=== PATIENT | male | born 1955 | race Caucasian/White ===

== ENCOUNTER 2023-10-09 07:39 | Emergency (ER) | payer MEDICARE, SELFPAY ==
--- NOTE | ~2023-10-09 | XR_ITS ---
Left foot Technique: AP, oblique, and lateral views were obtained. Clinical History: Heel pain Findings: No acute fracture or dislocation is seen. Osseous alignment is anatomic. Joint spaces are p reserved without erosive or degenerative change. Tiny plantar heel spur present. Soft tissues are unr emarkable. Impression: No acute abnormality. Tiny plantar calcaneal spur. Reviewed, dictated and finalized at location . Impression: No acute abnormality. Tiny plantar calcaneal spur.
[2023-10-09 07:44] VITALS: BP 150/90; PULSE 67; RESP 16; TEMP 36.6; O2SAT 98
--- NOTE | 2023-10-09 08:03 | ED.EXTPRO ---
HPI - Extremity Problem General Chief complaint: Extremity Problem,Nontraumatic Stated complaint: bone spur Time Seen by Provider: 10/09/23 07:47 History of Present Illness HPI Narrative: Pt complains of left heal pain for several weeks which got worse yesterday when walking around a field for 3 hrs. Pt had heal spur 25 yrs ago and got cortisone injection and has not had any problems since. Pt has appointment with PCP in 3 weeks but could not wait due to discomfort. Pt denies injury. Related Data Home Medications Medication Instructions Recorded Confirmed desmopressin 0.2 mg tablet 0.4 mg PO HS 01/27/19 02/02/19 lisinopril 10 mg tablet 10 mg PO DAILY 01/27/19 02/02/19 tamsulosin 0.4 mg capsule 0.4 mg PO HS 01/27/19 02/02/19 testosterone 1 % (50 mg/5 gram) 1 packet topical DAILY 01/27/19 02/02/19 transdermal gel packet Allergies Allergy/AdvReac Type Severity Reaction Status Date / Time No Known Allergies Allergy Unverified 02/02/19 11:46 Review of Systems Review of Systems: All systems reviewed & are unremarkable except as noted in HPI and below Exam Const: General: healthy appearing and no acute distress Nutritional Appearance: well nourished Orientation/consciousness: patient oriented x3 Limitations: no limitations Eyes: EOM: EOMs intact bilaterally Neck: Neck: normal visual inspection Resp: Effort & Inspection: normal respiratory effort Skin: General skin exam: normal color Rashes: no rashes Wounds: no wounds Neuro: General: patient oriented x3, moves all extremities, no meningeal signs and no focal motor deficits Extrem: General: normal to inspection and no clubbing, cyanosis or edema Other: no tenderness to palpation of left heal Psych: Mental Status: mental status grossly normal Affect: normal affect Attitude: cooperative Course Vital Signs Vital signs: Vital Signs Temperature 97.9 F 10/09/23 07:44 Pulse Rate 67 10/09/23 07:44 Respiratory Rate 16 10/09/23 07:44 Blood Pressure 150/90 H 10/09/23 07:44 Pulse Oximetry 98 10/09/23 07:44 Oxygen Delivery Room Air 10/09/23 07:44 Temperature 97.9 F 10/09/23 07:44 Pulse Rate 67 10/09/23 07:44 Respiratory Rate 16 10/09/23 07:44 Blood Pressure 150/90 H 10/09/23 07:44 Pulse Oximetry 98 10/09/23 07:44 Oxygen Delivery Room Air 10/09/23 07:44 MDM - Extremity (Nontraumatic) MDM Narrative Medical decision making narrative: Pt presents with left heal pain similar to calcaneal spur he had years ago. Pt is requesting cortisone shot to heal. Informed patient patrizia I do not do this procedure and may not be indicated right now anyway. Will try a short cours of oral prednisone and give podiatry contacts for follow up. Discharge Plan Discharge Clinical Impression: Heel spur Patient Disposition: Home, Self-Care Condition: Stable Instructions: Antibiotic Form, Heel Spur (ED) Prescriptions: New prednisone 50 mg tablet 50 mg PO DAILY Qty: 5 0RF No Action desmopressin 0.2 mg tablet 0.4 mg PO HS tamsulosin 0.4 mg capsule 0.4 mg PO HS lisinopril 10 mg tablet 10 mg PO DAILY testosterone 1 % (50 mg/5 gram) gel in packet 1 packet topical DAILY Follow-up/Referrals: Harms,Durga Nam M.D. [Primary Care Provider] -
== END 2023-10-09 08:32 | disposition home or self-care (01) ==
PROVIDERS: Emergency Provider Emergency Medicine; PCP Family Medicine
DX: M77.8 Other enthesopathies, not elsewhere classified (principal)
CPT/HCPCS: 73630; 99283